=== PATIENT | female | born 1950 | race Caucasian/White ===

== ENCOUNTER 2017-04-25 16:04 | Outpatient (CLI) | payer OTHER ==
[~2017-04-25 16:04] MED LIST: BELVIQ PO; IBUPROFEN200 M1 PO; PERCOCET1 TA4 PO; PROAIR HFA IN; ZOFRAN4 MG PO
--- NOTE | 2017-05-03 08:27 | DIAGNOSTIC IMAGING REPORT ---
PROCEDURE: MG BILATERAL SCREENING W/CAD INDICATION: SCREENING TECHNIQUE: Bilateral CC and MLO digital views. COMPARISON: Mammograms 01/12/2013, 07/20/2010 and 02/13/2007. FINDINGS: Computer-aided detection applied. Mildly to moderately dense. No change. IMPRESSION: 1. Negative mammogram RESULT CODE: 1- Negative. A. A negative report should not delay biopsy if a dominant or clinically suspicious mass is present. 10-15% of cancers are not identified by x-ray. B. A negative report may reinforce clinical impression. C. Adenosis and dense breasts may obscure an underlying neoplasm. D. False positive reports average 6-10%. E.. A yearly screening mammogram is recommended. A reminder letter will be scheduled.
== END 2017-04-25 23:00 | disposition home or self-care (01) ==
LOC: MAM SRH 16:04
DX: Z12.31 Encounter for screening mammogram for malignant neoplasm of breast (principal)